=== PATIENT | male | born 1995 | race Two or more races ===

== ENCOUNTER 2020-04-26 18:24 | Emergency (ER) | payer MEDICAID ==
[~2020-04-26] VITALS: Ht 175.3 cm; Wt 74.4 kg
--- NOTE | 2020-04-26 18:41 | NUR ---
DR Bird at the bedside for MSE.
[2020-04-26] MEDS ORDERED: IBUPROFEN 600 MG TABLET PO ONE (18:45)
[2020-04-26] MEDS ORDERED: IBUPROFEN 600 MG TABLET ONE (18:54)
[2020-04-26] MEDS ORDERED: IBUP-1955 PO (19:27)
[2020-04-26 19:35] VITALS: BP 128/82
--- NOTE | 2020-04-26 19:35 | NUR ---
Patient discharged to home in stable condition. Written and verbal after care instructions given. Patient verbalizes understanding of instructions. Stressed follow up or return to ER for worsening s/s. Patient ambulates with steady gait, received Rx, V/S stable, left with all personal belongings.
== END 2020-04-26 19:35 | disposition home or self-care (01) ==
LOC: ER 18:27
DX: S93.601A Unspecified sprain of right foot, initial encounter (principal); W51.XXXA Accidental striking against or bumped into by another person, initial encounter; Y93.71 Activity, boxing; Y92.89 Other specified places as the place of occurrence of the external cause; Y99.8 Other external cause status; R03.0 Elevated blood-pressure reading, without diagnosis of hypertension
CPT/HCPCS: 73630; A4663